=== PATIENT | female | born 1945 | race Caucasian/White ===

== ENCOUNTER 2020-07-22 07:32 | Day surgery (SDC) | payer OTHER ==
[2020-07-17 13:08] VITALS: BMI 24.9
[2020-07-22 08:09] VITALS: TEMP 98
[2020-07-22] MEDS: CIPROFLOXACIN 0.3% EYE DROPS 5 ML BOTTLE ONE ×3 (08:10→08:20)
[2020-07-22] MEDS: TROPICAMIDE 1% OPHTH SOLN 15 ML BOTTLE ONE ×3 (08:10→08:20)
[2020-07-22] MEDS: PHENYLEPHRINE 2.5% OPHTH SOLN 15 ML BOTTLE ONE ×3 (08:10→08:20)
[2020-07-22] MEDS: CYCLOPENTOLATE 2% OPHTH SOLN 2 ML BOTTLE ONE ×3 (08:10→08:20)
[2020-07-22] MEDS ORDERED: TETRACAINE 0.5% OPHTH SOLN 2 ML BOTTLE ONE (08:31)
[2020-07-22] MEDS ORDERED: NEO/POLYMYX B SULF/DEXAMETH OPHTHALMIC 5ML BOTTLE ONE (08:31)
[2020-07-22] MEDS ORDERED: EPI-SHUGARCAINE (EPINEPHRINE 0.025% & LIDOCAINE-PF 0.75%) 4ML ONE (08:31)
[2020-07-22] MEDS ORDERED: ACETYLCHOLINE 1:100 INTRA-OCUL 20 MG/2 ML KIT ONE (08:31)
[2020-07-22] MEDS ORDERED: POVIDONE-IODINE 5% OPHTHALMIC PREP 30 ML SOLUTION ONE (08:31)
[2020-07-22] MEDS ORDERED: MIDAZOLAM HCL 2 MG/2 ML SINGLE DOSE VIAL ONE (09:31)
[2020-07-22 10:38] VITALS: BP 130/80; PULSE 74
== END 2020-07-22 11:00 | disposition home or self-care (01) ==
LOC: FASU 07:32
PROVIDERS: ATTEND Ophthalmology
PROC: 08RK3JZ Replacement of Left Lens with Synthetic Substitute, Percutaneous Approach (ICD-10-PCS; principal; 2020-07-22 09:39)
DX: H26.8 Other specified cataract (principal)